=== PATIENT | male | born 1995 | race Caucasian/White ===

== ENCOUNTER 2017-10-03 14:33 | Emergency (ER) | payer SELFPAY ==
[2017-10-03 14:40] VITALS: BMI 29.4
[2017-10-03 14:42] VITALS: TEMP 98.3
[2017-10-03] MEDS ORDERED: guaiFENesin DM 200 mg-20 mg/10 ml UD PO ONE (14:55)
--- NOTE | 2017-10-03 14:57 | ED PDOC ---
Arrival/HPI - General Chief Complaint: Cough, Cold, Congestion Time Seen by Provider: 10/03/17 14:51 Historian: Patient, Spouse - History of Present Illness Narrative History of Present Illness (Text): 10/03/17 17:04 pt p/w + 3 days onset of progressively worsening dry cough, and currently with intermittent white sputumn production, non-bloody; afebrile, + chills, no sweats , noted worsening central chest tightness; spouse provided patient with OTC tylenol/advil for pain control as well as using pt's son's albuterol with no real relief; pt states chest pain/tightness ~ 6-7/10, non-radiating; pt states mild sob, no palpitations, no abd pain, no n/v, no numbness/tingling, no urinary /bowel changes, no rashes, no fall/trauma/travel, ? sick contact pt states no LOC, no lightheadedness pt is here for further eval pt's without other complaints. Time/Duration: < week Symptom Onset: Sudden Symptom Course: Worsening Quality: Tightness Severity Level: 7 Activities at Onset: Rest Context: Sitting, Home Past Medical History - Provider Review Nursing Documentation Reviewed: Yes - Travel History Have you recently traveled outside [place] w/in the past 3 mons?: No - Past History Past History: No Previous - Infectious Disease Hx of Infectious Diseases: None - Cardiac Hx Cardiac Disorders: No - Pulmonary Hx Respiratory Disorders: No - Hematological/Oncological Hx Blood Disorders: No - Psychiatric Hx Substance Use: No - Anesthesia Hx Anesthesia: No Family/Social History - Physician Review Nursing Documentation Reviewed: Yes Family/Social History: No Known Family HX (no early family hx of Acute IL < 50yo ; no sudden in family members or anyone in the family requiring pacemaker/ AICD placement at a young age) Smoking Status: Unknown If Ever Smoked Hx Alcohol Use: No Hx Substance Use: No Allergies/Home Meds Allergies/Adverse Reactions: Allergies No Known Allergies Allergy (Verified 10/03/17 14:40) Review of Systems - Review of Systems Constitutional: Fatigue. absent: Fevers Eyes: Normal ENT: Normal Respiratory: SOB, Cough, Sputum. absent: Wheezing Cardiovascular: Chest Pain. absent: Palpitations, Edema, Syncope Gastrointestinal: Normal Genitourinary Male: Normal Musculoskeletal: Normal Skin: Normal Neurological: Normal Endocrine: Normal Hemo/Lymphatic: Normal Psychiatric: Normal Physical Exam Vital Signs Reviewed: Yes Vital Signs Temp Pulse Resp BP Pulse Ox 10/03/17 14:42 98.3 F 71 18 135/57 L 95 Temperature: Afebrile Blood Pressure: Normal Pulse: Regular Respiratory Rate: Normal Appearance: Positive for: Well-Appearing, Non-Toxic, Other (uncomfortable, alert /awake, NAD, resting in bed, cooperative) Pain Distress: None Mental Status: Positive for: Alert and Oriented X 3 - Systems Exam Head: Present: Atraumatic, Normocephalic Pupils: Present: PERRL, Other (no nystagmus, no photophobia, sclera anicteric, visual field intact b/l) Extroacular Muscles: Present: EOMI Conjunctiva: Present: Normal Ears: Present: Normal Mouth: Present: Normal Teeth, Other (mild dry oral mucosa, uvula/tongue are midline, no exudate/lesions, no drooling/stridor, no dysphonia) Pharnyx: Present: Normal Neck: Present: Normal Range of Motion, Trachea Midline. No: MIDLINE TENDERNESS Respiratory/Chest: Present: Clear to Auscultation, Good Air Exchange, Other ( CTA b/l, no w/r/r, no accessory muscle use noted, no tachypenia). No: Respiratory Distress, Accessory Muscle Use Cardiovascular: Present: Regular Rate and Rhythm, Normal S1, S2. No: Murmurs Abdomen: Present: Normal Bowel Sounds, Other (well nourished male, no focal tenderness, no gutierrez's sign, no mcburney's point tenderness, no masses/rebound/ guarding/rigidity). No: Tenderness, Distention, Peritoneal Signs Back: Present: Normal Inspection. No: CVA Tenderness, Midline Tenderness Upper Extremity: Present: Normal Inspection, Normal ROM, NORMAL PULSES, Neurovascularly Intact, Capillary Refill < 2s. No: Cyanosis, Edema Lower Extremity: Present: Normal Inspection, NORMAL PULSES, Normal ROM, Neurovascularly Intact, Capillary Refill < 2 s. No: Edema, Sabina's Sign Neurological: Present: GCS=15, CN II-XII Intact, Speech Normal Skin: Present: Warm, Dry, Normal Color, Other (cap refill ~ 1sec, no ulcerations , no petechiae, no rashes, no gross pallor). No: Rashes Psychiatric: Present: Alert, Oriented x 3, Normal Insight, Normal Concentration Medical Decision Making ED Course and Treatment: 10/03/17 16:22 Impression: coughing/weakness/sob/chest tightness i have consider all the differential diagnosis regarding pt's chief medical complaints/clinical findings, including but are not limited to: Differential Diagnosis included but are not limited to: likely viral syndrome, r /o pna, unlikely PTX, unlikely PE/ACS, will monitor A/P: coughing/sob/chest tightness - xray - ekg - treatment - observe - supportive care 10/03/17 16:57 pt felt improved repeat Lung exam: CTA b/l, no w/r/r, no accessory muscle use noted, no tachypenia pt is made aware of his medical results pt is encouraged fluid hydration pt is instructed on 1 tsp of honey TID for cough control pt will f/u as directed pt will be discharged home 10/03/17 17:21 Re-evaluation Time: 16:23 Reassessment Condition: Improved - Lab Interpretations Lab Results: Lab Results 10/03/17 15:00: Influenza Typ A,B (EIA) Negative for flu a/b WNL I have reviewed the lab results: Yes (WNL) Interpretation: All labs normal - RAD Interpretation Radiology Orders: 10/03/17 16:21 CHEST TWO VIEWS (PA/LAT) [RAD] Stat NAD HISTORY: Cough chest pain shortness of breath. COMPARISON: No prior. TECHNIQUE: Chest PA and lateral FINDINGS: LUNGS: No active pulmonary disease. PLEURA: No significant pleural effusion identified. No pneumothorax apparent. CARDIOVASCULAR: Normal. OSSEOUS STRUCTURES: No significant abnormalities. VISUALIZED UPPER ABDOMEN: Normal. OTHER FINDINGS: None. IMPRESSION: No active disease. Concordant results with the preliminary interpretation rendered by the emergency department physician\PA at the conclusion of the procedure. 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 - Medication Orders Current Medication Orders: Discontinued Medications Albuterol/Ipratropium (Duoneb 3 Mg/0.5 Mg (3 Ml) Ud) 3 ml IH Q15M SARAH Stop: 10/03/17 15:31 Last Admin: 10/03/17 15:44 Dose: 3 ml Guaifenesin/Dextromethorphan (Robitussin Dm) 10 ml PO ONCE ONE Stop: 10/03/17 14:56 Last Admin: 10/03/17 15:13 Dose: 10 ml Ibuprofen (Motrin Tab) 600 mg PO STAT STA Stop: 10/03/17 14:57 Last Admin: 10/03/17 15:14 Dose: 600 mg MAR Pain/Vitals Document 10/03/17 15:14 [facility] (Rec: 10/03/17 15:14 [facility] [id number]) Pain Reassessment Is This A Pain ReAssessment? No Sleep Is patient sleeping during reassessment? No Presence of Pain Presence of Pain Yes Pain Scale Used Pain Scale Used Numeric Location Pain Location Body Site Back Intensity 5 Scale Used Numeric Disposition/Present on Arrival - Present on Arrival Any Indicators Present on Arrival: No History of DVT/PE: No History of Uncontrolled Diabetes: No Urinary Catheter: No History of Decub. Ulcer: No History Surgical Site Infection Following: None - Disposition Have Diagnosis and Disposition been Completed?: Yes Diagnosis: Nonspecific syndrome suggestive of viral illness, Cough, Atypical chest pain Disposition: HOME/ ROUTINE Disposition Time: 16:35 Patient Plan: Discharge Condition: STABLE Discharge Instructions (ExitCare): Chest Pain (ED), Cold Symptoms (ED), Viral Syndrome (ED) Print Language: MACEDONIAN Additional Instructions: Make sure to see your doctor in 1-2 days DRINK PLENTY OF FLUIDS try 1 teaspoon of honey every 8hours for cough control take your medications as prescribed RETURN TO ED IF worse pain, cant breath, persistent vomiting, high fever >101- 102 for hours, altered behavior, unable to urinate, heavy/persistent bleeding, passing out, chest pain, or other medical emergencies Prescriptions: guaiFENesin/Codeine [Codeine/Guaifenesin 10 MG/5 Ml-100 MG/5 Ml 5] 5 ml PO Q6H # 100 ml Ibuprofen [Motrin] 400 mg PO Q6H #30 tab Referrals: PCP,NO [Primary Care Provider] - Follow up with primary Forms: [employer] (Danish)
[2017-10-03] MEDS: Albuterol-Ipratrop 3 mg / 0.5 (3 ml) UD IH SCH ×3 (15:13→15:44)
[2017-10-03 17:10] VITALS: BP 130/75; PULSE 64; RESP 17; O2SAT 100
--- NOTE | 2017-10-03 17:24 | RAD ---
HISTORY: Cough chest pain shortness of breath. COMPARISON: No prior. TECHNIQUE: Chest PA and lateral FINDINGS: LUNGS: No active pulmonary disease. PLEURA: No significant pleural effusion identified. No pneumothorax apparent. CARDIOVASCULAR: Normal. OSSEOUS STRUCTURES: No significant abnormalities. VISUALIZED UPPER ABDOMEN: Normal. OTHER FINDINGS: None. IMPRESSION: No active disease. Concordant results with the preliminary interpretation rendered by the emergency department physician procedure.
--- NOTE | 2017-10-04 17:29 | CARD ---
APPROVED REPORT EKG Measurement Heart [id number] <Conclusion> Poor data quality, interpretation may be adversely affected Normal sinus rhythm with sinus arrhythmia Normal ECG
== END 2017-10-03 17:10 | disposition home or self-care (01) ==
LOC: ED 14:33 → MERGE 14:33 → ED 17:10
DX: R05 Cough (principal); R07.89 Other chest pain